=== PATIENT | female | born 1985 | race Caucasian/White ===

== ENCOUNTER 2017-03-08 16:27 | Emergency (ER) | payer OTHER ==
[2017-03-08 17:07] VITALS: BP 114/72
--- NOTE | 2017-03-16 21:09 | UC ---
Lower Extremity/Ankle HPI - HPI Summary HPI Summary: 31 YEAR OLD FEMALE PRESENTS WITH RIGHT [place] PAIN SECONDARY TO A FALL. - History of Current Complaint Chief Complaint: UCLowerExtremity Stated Complaint: LEG INJURY Time Seen by Provider: 03/08/17 16:39 Hx Obtained From: Patient Hx Last Menstrual Period: 2 days late Onset/Duration: Sudden Onset Severity Initially: Moderate Severity Currently: Moderate Pain Intensity: 0 Pain Scale Used: 0-10 Numeric - 6 Aggravating Factor(s): Standing Alleviating Factor(s): Rest, Elevation - Allergies/Home Medications Allergies/Adverse Reactions: Allergies Allergy/AdvReac Type Severity Reaction Status Date / Time No Known Allergies Allergy Verified 03/08/17 16:36 Home Medications: Home Medications ALPRAZolam TAB* [Xanax TAB*] 0.25 mg PO Q6H PRN 03/08/17 [History Confirmed ] Amphetamine-Dextroamphetamine [Adderall XR 30 mg-] 60 mg PO DAILY 03/08/17 [ History Confirmed 03/08/17] PMH/Surg Hx/FS Hx/Imm Hx Previously Healthy: Yes - Surgical History Surgical History: Yes Surgery Procedure, Year, and Place: csection - Social History Alcohol Use: Occasionally Substance Use Type: None Smoking Status (MU): Never Smoked Tobacco - Immunization History Most Recent Influenza Vaccination: never Most Recent Tetanus Shot: 11/24/15 Most Recent Pneumonia Vaccination: never Review of Systems Constitutional: Negative Skin: Other - RIGHT [place] ABRASION [place] CONTUSION Eyes: Negative ENT: Negative Respiratory: Negative Cardiovascular: Negative Gastrointestinal: Negative Genitourinary: Negative Motor: Negative Neurovascular: Negative Musculoskeletal: Negative Neurological: Negative Psychological: Negative All Other Systems Reviewed And Are Negative: Yes Physical Exam Triage Information Reviewed: Yes Vital Signs: Initial Vital Signs Temp 36.2 C 03/08/17 16:31 Pulse 66 03/08/17 16:31 Resp 18 03/08/17 16:31 BP 114/72 03/08/17 16:31 Pulse Ox 99 03/08/17 16:31 Eye Exam: Normal ENT Exam: Normal Dental Exam: Normal Neck exam: Normal Neck: Positive: 1 Respiratory Exam: Normal Cardiovascular Exam: Normal Abdominal Exam: Normal Musculoskeletal: Positive: Other: - [place] ABRASION [place] CONTUSION Neurological Exam: Normal Psychological Exam: Normal Skin: Positive: Other - [place] ABRASION [place] CONTUSION Lower Extremity Course/Dx - Differential Dx/Diagnosis Provider Diagnoses: [place] ABRASION [place] CONTUSION Discharge - Discharge Plan Condition: Stable Disposition: HOME Prescriptions: Cephalexin CAP* [Keflex CAP*] 500 mg PO TID #30 cap Patient Education Materials: Contusion in Adults (ED), Abrasion (ED) Referrals: No Primary Care Phys,NOPCP [Primary Care Provider] -
== END 2017-03-08 17:18 | disposition home or self-care (01) ==
LOC: UCEAST 16:27
DX: S80.811A Abrasion, right lower leg, initial encounter (principal); S80.11XA Contusion of right lower leg, initial encounter; W19.XXXA Unspecified fall, initial encounter; Y93.9 Activity, unspecified; Y92.9 Unspecified place or not applicable; Z32.01 Encounter for pregnancy test, result positive
CPT/HCPCS: 81003; 84702; 99212; G0463

== ENCOUNTER 2017-09-22 08:31 | Emergency (ER) | payer OTHER ==
[2017-09-22 08:43] VITALS: BP 81/47
[2017-09-22] MEDS ORDERED: Ondansetron TAB* 4 MG PO ONE ×2 (09:41→09:53)
[2017-09-22] MEDS ORDERED: Ondansetron ODT TAB* 4 MG ONE (09:48)
[2017-09-22] MEDS ORDERED: Ondansetron ODT TAB* 4 MG PO ONE (09:54)
--- NOTE | 2017-09-22 10:08 | UC ---
UC General HPI - HPI Summary HPI Summary: c/o nausea, vomiting and diarrhea since yesterday night. She states she had a low grade fever at home but has not vomited for the past 2 hours and has been sipping gatorade ever since. She states her 18 month boy is also sick and he vomited once along with low grade fever. Also states she has been feeling congested lately. LMD 09-09-17 - History of Current Complaint Chief Complaint: UCGeneralIllness Stated Complaint: VOMITING, AND DIARRHEA Time Seen by Provider: 09/22/17 09:30 Hx Obtained From: Patient Hx Last Menstrual Period: 09/09/17 Onset/Duration: Sudden Onset, Lasting Hours Onset Severity: Mild Current Severity: Moderate Pain Intensity: 6 Associated Signs & Symptoms: Positive: Diarrhea, Nausea, Vomiting - Allergy/Home Medications Allergies/Adverse Reactions: Allergies Allergy/AdvReac Type Severity Reaction Status Date / Time No Known Allergies Allergy Verified 09/22/17 08:37 PMH/Surg Hx/FS Hx/Imm Hx Previously Healthy: Yes - Surgical History Surgical History: Yes Surgery Procedure, Year, and Place: csection - Social History Alcohol Use: None Substance Use Type: None Smoking Status (MU): Never Smoked Tobacco - Immunization History Most Recent Influenza Vaccination: never Most Recent Tetanus Shot: 11/24/15 Most Recent Pneumonia Vaccination: never Review of Systems Constitutional: Fever, Fatigue Gastrointestinal: Vomiting, Diarrhea, Nausea All Other Systems Reviewed And Are Negative: Yes Physical Exam Triage Information Reviewed: Yes Appearance: Well-Appearing, No Pain Distress Vital Signs: Initial Vital Signs Temp 97.8 F 09/22/17 08:38 Pulse 88 09/22/17 08:38 Resp 17 09/22/17 08:38 BP 81/47 09/22/17 08:38 Pulse Ox 100 09/22/17 08:38 Vital Signs Reviewed: Yes Eyes: Positive: Conjunctiva Clear ENT: Positive: Pharynx normal, TMs normal, Uvula midline Neck exam: Normal Respiratory: Positive: Chest non-tender, Lungs clear, Normal breath sounds, No respiratory distress Cardiovascular: Positive: RRR, No Murmur, Pulses Normal, Brisk Capillary Refill Abdomen Description: Positive: Nontender, No Organomegaly, Soft Bowel Sounds: Positive: Present Musculoskeletal: Positive: Strength Intact, ROM Intact, No Edema, Other: Course/Dx - Course Course Of Treatment: viral gastroenteritis, has tolerated oral hydration for the past 2 hrs. Continue gradual rehydration, BRAT diet, tylenol as needed for fever. Patient still feeling nausea, will prescribe zofran 4mg po q6hrs prn. Follow up with PCP - Differential Dx - Multi-Symptom Provider Diagnoses: Viral Gastroenteritis Discharge - Sign-Out/Discharge Documenting (check all that apply): Discharge - Discharge Plan Condition: Stable Disposition: HOME Prescriptions: Ondansetron TAB* [Zofran 4 MG Tab*] 4 mg PO Q6H PRN #20 tab PRN Reason: Nausea Patient Education Materials: Dehydration (ED), Gastroenteritis (ED) Referrals: No Primary Care Phys,NOPCP [Primary Care Provider] - - Billing Disposition and Condition Condition: STABLE Disposition: HOME
== END 2017-09-22 09:55 | disposition home or self-care (01) ==
LOC: UCEAST 08:31
DX: A08.4 Viral intestinal infection, unspecified (principal)
CPT/HCPCS: 99212; A9270-GY; G0463

== ENCOUNTER 2019-06-26 00:02 | Inpatient (IN) | payer BC, OTHER ==
[2019-06-26] MEDS ORDERED: Lactated Ringers 1000 ML Bag* 1,000 ML IV ONE ×2 (01:06→04:22)
[2019-06-26] MEDS ORDERED: Buffered Lidocaine 1% SYRIN* 1 ML/SYRINGE INTRADERM ONE (01:06)
--- NOTE | 2019-06-26 01:19 | HP ---
General Information - Reason for Visit gush of fluid at 2300 - General Information Maternal Age: 33 Grav: 3 Para: 1 SAB: 0 IEA: 1 Estimated Due Date: 07/15/19 Determined By: LMP Maternal Blood Type and Rh: O Positive - Results this Serology/RPR Result: Non-Reactive Rubella Result: Immune HBsAg Result: Negative HIV Result: Negative GBS Culture Result: Negative Past Medical History Delivery History: Hx C/Section Pertinent Past Medical History: See Records Pertinent Past Surgical History: See Records Pertinent Family History: Non-Contributory - Antepartal Records Antepartal Records: Reviewed, Complicated by: - hydramnios Review of Systems Constitutional: Comfortable CV Complaint: No Respiratory: Shortness of Breath: No Gastrointestinal: No Nausea/Vomiting Genitourinary: Leaking Fluid Musculoskeletal: Contractions - mild Movement: Normal Exam Allergies/Adverse Reactions: Allergies No Known Allergies Allergy (Verified 09/22/17 08:37) - Measurements Height: 5 ft 2 in Weight: 174 lb Weight in lbs: 174.612066 Body Mass Index (BMI): 31.8 Pre- Weight: 130 lb Weight Gained This : 44 lbs and 0 ozs - Exam Breast: Breast Exam Deferred Extremities: No Edema Heart: Normal Rhythm/Heart Sounds HEENT: No Significant Findings Lungs: Clear Bilaterally Rectal: Rectal Exam Deferred Reflexes: DTR 2+ Targeted Exam Findings Estimated Weight: 8 lbs Cervical Exam: 1cm Effacement: 70% Station: -1 Presenting Part: Vertex Membrane Status: SROM Amniotic Fluid Evaluation: Gross Rupture - meconium staining EFM Findings - External Monitor Findings External Monitor Findings: Accelerations Present, No Pattern of Variable or Late Decelerations, Variability Moderate, Baseline Stable Contractions: Regular - q 6minutes, Mild, 45-90 Seconds Assessment/Plan - Assessment gross rupture / early labor - Obstetrical Risk Factors Obstetrical Risk Factors: GBS Unknown - term , Previous C/Section in Labor - still not in active labor - Plan Plan: Admit - Anticipate Vaginal Delivery
[2019-06-26] MEDS ORDERED: hydrOXYzine HCL TAB* 50 MG PO ONE (01:26)
[2019-06-26] MEDS ORDERED: Calcium Carbonate CHEW TAB* 500 MG (TUMS) PO PRN (01:33)
[2019-06-26 01:41] LABS: Urine Benzodiazepine Screen None Detected (None Detect); Urine Opiates Screen None Detected (None Detect)
[2019-06-26 01:53] LABS: ABS Basophils 0.2 10^3/ul (0-0.2); ABS Eosinophils 0.2 10^3/ul (0-0.6); ABS Lymphocytes 2.9 10^3/ul (1.0-4.8); ABS Monocytes 0.7 10^3/ul (0-0.8); Eosinophil % 1.4 %; Hematocrit 37 % (35-47); Hemoglobin 12.7 g/dL (12.0-16.0); Lymphocyte % 26.3 %; Mean Corpuscular HGB Conc 35 g/dL (31-36); Mean Corpuscular Hemoglobin 31 pg (27-31); Mean Corpuscular Volume 91 fL (80-97); Mean Platelet Volume 10.4 fL (7.4-10.4); Nucleated Red Blood Cells % 0.1; Platelet Count 203 10^3/uL (150-450); Red Blood Count 4.03 10^6 /uL (3.70-4.87); Red Cell Distribution Width 14 % (10-15)
[2019-06-26] MEDS ORDERED: Lactated Ringers 1000 ML Bag* 1,000 ML IV SCH ×2 (02:00→05:00)
[2019-06-26] MEDS ORDERED: OBEPIDURAL* 250 ML EPIDURAL ONE (03:30)
[2019-06-26] MEDS ORDERED: Phenylephrine 40 MCG/ML SYRINGE IV PUSH PRN ×2 (04:22)
[2019-06-26] MEDS ORDERED: Sodium Citrate/Citric Acid* 15 ML UDC PO PRN (04:22)
[2019-06-26] MEDS ORDERED: OBEPIDURAL* 250 ML EPIDURAL SCH (05:00)
--- NOTE | 2019-06-26 08:18 | PN ---
Progress Note - Progress Note Date of Service: 06/26/19 Note: 33 y/o with SIUP at 37w2d with hx of c/s x 1 secondary to chorio, tachycardia, remote from delivery. Here with ROM at 2300 with light meconium, 1cm at that time on admission. Strongly desires TOLAC, consent signed. Expectantly managed, re-examined at 0749, forebag AROM'd with light meconium. Pt now 7cm/100%/-1 FHT is 145bpm, moderate variability, + accel with scalp stim, no decels Contractions q 3-3.5 Pt is comfortable with epidural Continue expectant management, no indication for augmentation at this time Maternal repositioning with peanut ball encouraged GBS unknown, at 37w2d, no high risk indications for ppx, reviewed with pt Hx of Anxiety/Depression/ADHD - recently started on Zoloft, has tapered off Adderall and self dc'd on 06/24 EFW 7#15 oz via formal USN on 06/24 rh+/Rubella Immune DO SOILA Encarnacion
--- NOTE | 2019-06-26 13:06 | PN ---
Progress Note - Progress Note Date of Service: 06/26/19 Note: Pt progressing spontaneously without augmentation. Cervix now 7-8cm/100%/-1 Cooper q 2-4 minutes FHT is baseline 145/moderate/+accels/no pattern late or variable decels Anesthesia to re-assess epidural to see if they can optimize comfort Continue to monitor closely Anticipate vaginal delivery DO SOILA Encarnacion
[2019-06-26] MEDS ORDERED: Oxytocin in LR* 20 UNITS/1,000 ML BAG IVPB ONE (16:12)
[2019-06-26] MEDS ORDERED: Dibucaine 1% 28.35 GM TUBE ONE ×2 (16:33→21:28)
[2019-06-26] MEDS: Sertraline* 50 MG TAB PO SCH (17:42)
--- NOTE | 2019-06-26 18:46 | PROCNOTE ---
[facility] OB: Delivery Note - Delivery A Date of : 06/26/19 Time of : 16:09 [place] Sex: Female Weight at : 7 lb 12 oz Score 1 Minute: 9 Score 5 Minutes: 9 Gestational Age in Weeks and Days at Delivery: 37 Weeks and 2 Days Delivery Method: Spontaneous Vaginal Labor: Spontaneous Did Patient attempt ?: Yes, Successful Amniotic Fluid: Meconium Estimated Blood Loss: 300 Anesthesia/Analgesia: CEI for Labor Delivered By: Young Miller JR - Nursery Level of Nursery: Regular/Bedside - Perineum Perineal Injury: Periurethral Laceration, Perineal Laceration, 2nd Degree Perineal Injury Comment: dibucaine applied Perineal Repair: By Delivering Practioner - Repaired with 2-0 Vicryl and 2-0 Vicryl Rapide - Events Delivery Events of Note: Pitocin Only After Delivery - Additional Delivery Notes Additional Delivery Notes: Successful . Pt presented to hospital with SROM at 1cm with light meconium. Progressed to fully dilated without further augmentation. Pushed for ~ 1 hour 20 minutes. Delivery uncomplicated. in direct OA presentation. 2nd degree perineal laceration repaired with 2-0 Vicryl in usual fashion. Periurethral laceration repaired with Vicryl rapide. and mother doing well at time of this note. DO SOILA Encarnacion
[2019-06-26] MEDS ORDERED: Ibuprofen TAB* 600 MG ONE (21:36)
[2019-06-27] MEDS ORDERED: Ibuprofen TAB* 600 MG ONE (01:37)
[2019-06-27] MEDS ORDERED: Acetaminophen TAB* 325 MG ONE (01:41)
[2019-06-27] MEDS ORDERED: Glycerin ADULT SUPP PR PRN (03:42)
[2019-06-27] MEDS ORDERED: Dibucaine 1% 28.35 GM TUBE PR PRN (03:42)
[2019-06-27] MEDS ORDERED: Witch Hazel PAD* JAR TOPICAL PRN (03:42)
[2019-06-27] MEDS ORDERED: Lactated Ringers 1000 ML Bag* 1,000 ML IV SCH (04:00)
[2019-06-27] MEDS: Ibuprofen TAB* 600 MG PO PRN ×2 (05:53→15:31)
[2019-06-27] MEDS ORDERED: Simethicone TAB* 80 MG TAB.CHEW PO SCH (08:30)
[2019-06-27] MEDS: Docusate CAP* 100 MG PO SCH ×3 (08:47→21:00)
[2019-06-27] MEDS: Sertraline* 50 MG TAB PO SCH (08:47)
[2019-06-27 13:37] LABS: ABS Basophils 0.1 10^3/ul (0-0.2); ABS Eosinophils 0.2 10^3/ul (0-0.6); ABS Lymphocytes 2.5 10^3/ul (1.0-4.8); ABS Monocytes 0.7 10^3/ul (0-0.8); ABS Neutrophils 10.7 10^3/ul (1.5-7.7); Eosinophil % 1.4 %; Hematocrit 30 % (35-47); Hemoglobin 10.1 g/dL (12.0-16.0); Lymphocyte % 17.5 %; Mean Corpuscular HGB Conc 34 g/dL (31-36); Mean Corpuscular Hemoglobin 31 pg (27-31); Mean Corpuscular Volume 91 fL (80-97); Mean Platelet Volume 10.4 fL (7.4-10.4); Platelet Count 179 10^3/uL (150-450); Red Blood Count 3.26 10^6 /uL (3.70-4.87); Red Cell Distribution Width 14 % (10-15); White Blood Count 14.2 10^3/uL (3.5-10.8)
[2019-06-27] MEDS: Acetaminophen TAB* 325 MG PO PRN ×2 (16:40→20:59)
[2019-06-28] MEDS: Acetaminophen TAB* 325 MG PO PRN ×2 (02:50→08:02)
[2019-06-28 07:58] VITALS: BP 114/64
[2019-06-28] MEDS: Ibuprofen TAB* 600 MG PO PRN (08:02)
[2019-06-28] MEDS: Docusate CAP* 100 MG PO SCH (08:52)
[2019-06-28] MEDS: Sertraline* 50 MG TAB PO SCH (08:52)
[2019-06-28] MEDS ORDERED: Ferrous Gluconate TAB* 324 MG TAB PO SCH (09:00)
== END 2019-06-28 10:40 | disposition home or self-care (01) | DRG 560 ==
LOC: MCHOBOUT 00:02 → MCHOB 01:13
PROVIDERS: ADMIT Obstetrics & Gynecology; ATTEND Obstetrics & Gynecology
PROC: 10E0XZZ Delivery of Products of Conception, External Approach (ICD-10-PCS; principal; 2019-06-26)
PROC: 4A1HXCZ Monitoring of Products of Conception, Cardiac Rate, External Approach (ICD-10-PCS; 2019-06-26)
PROC: 0KQM0ZZ Repair Perineum Muscle, Open Approach (ICD-10-PCS; 2019-06-26)
PROC: 0UQMXZZ Repair Vulva, External Approach (ICD-10-PCS; 2019-06-26)
PROC: 10907ZC Drainage of Amniotic Fluid, Therapeutic from Products of Conception, Via Natural or Artificial Opening (ICD-10-PCS; 2019-06-26)
DX: O34.211 Maternal care for low transverse scar from previous cesarean delivery (principal); Z37.0 Single live birth; O77.0 Labor and delivery complicated by meconium in amniotic fluid; O40.3XX0 Polyhydramnios, third trimester, not applicable or unspecified; O70.1 Second degree perineal laceration during delivery; O71.82 Other specified trauma to perineum and vulva; F41.9 Anxiety disorder, unspecified; O99.344 Other mental disorders complicating childbirth; F32.9 Major depressive disorder, single episode, unspecified; F90.9 Attention-deficit hyperactivity disorder, unspecified type; O66.2 Obstructed labor due to unusually large fetus; Z3A.37 37 weeks gestation of pregnancy; Z28.21 Immunization not carried out because of patient refusal
CPT/HCPCS: 36415; 80307; 85025; 86850; 86900; 86901; A9270-GY